=== PATIENT | male | born 1970 | race Two or more races ===

== ENCOUNTER → 2020-06-12 | Outpatient (CLI) | payer MEDICAID ==
[~2020-06-12] VITALS: Ht 172.7 cm; Wt 95.7 kg
== END | disposition home or self-care (01) ==
LOC: Rad HDHVI 13:40
PROVIDERS: ATTEND Internal Medicine Cardiovascular Disease
DX: R00.2 Palpitations (principal); I10 Essential (primary) hypertension; E78.00 Pure hypercholesterolemia, unspecified; E11.9 Type 2 diabetes mellitus without complications
CPT/HCPCS: 78452; 93017; 96374; A9500